=== PATIENT | female | born 1945 | race Caucasian/White ===

== ENCOUNTER 2018-05-14 07:08 | Day surgery (SDC) | payer OTHER ==
[2018-05-14] MEDS ORDERED: NS 1,000 ML IV ONE (07:11)
[2018-05-14] MEDS ORDERED: diphenhydrAMINE 25 MG CAP PO ONE ×2 (07:11→07:42)
[2018-05-14] MEDS ORDERED: DIAZEPAM 5 MG TAB PO ONE (07:11)
[2018-05-14] MEDS ORDERED: FAMOTIDINE 20 MG TAB PO ONE (07:11)
[2018-05-14] MEDS ORDERED: ASPIRIN EC 325 MG TAB PO ONE ×2 (07:11→07:43)
[2018-05-14] MEDS ORDERED: FAMOTIDINE 20 MG TAB ONE (07:42)
[2018-05-14] MEDS ORDERED: DIAZEPAM 5 MG TAB ONE (07:45)
[2018-05-14 07:52] LABS: PLATELET COUNT 216 10^3/uL (150-400)
[2018-05-14 08:02] LABS: INR 0.91 (0.83-1.16); PROTIME(PATIENT) 12.5 SEC (12.0-15.0)
--- NOTE | 2018-05-14 08:19 | PDHPUP ---
History & Physical Update H&P update statement: This history and physical update is based on an assessment of the patient which was completed after admission or registration (within 24 hours), but prior to the surgery/procedure. H&P update: H&P reviewed & patient examined, no change in patient's condition since H&P completed
--- NOTE | 2018-05-14 08:19 | PDPROPOC ---
Sedation Plan of Care Sedation Plan of Care: vital signs stable, mental status noted, patient educated of risks, benefits, alternatives, patient can tolerate sedation ASA Classification: ASA 2 Planned drugs: fentanyl, midazolam Mallampati Score: Class 1 Mallampati Reference Image:
[2018-05-14] MEDS ORDERED: HEPARIN 10,000 UNIT/10 ML MDV (1,000 UNIT/ML) ONE (09:40)
[2018-05-14] MEDS ORDERED: VERAPAMIL 5 MG/2 ML VIAL ONE (09:40)
[2018-05-14] MEDS ORDERED: MIDAZOLAM 2 MG/2 ML VIAL ONE ×2 (09:40→10:06)
[2018-05-14] MEDS ORDERED: fentaNYL 100 MCG/2 ML INJ ONE (09:40)
[2018-05-14] MEDS ORDERED: LIDOCAINE 1% 300 MG/30 ML SDV ONE (09:40)
[2018-05-14] MEDS ORDERED: IOPAMIDOL (ISOVUE-370) 150 ML BTL IV ONE (09:41)
--- NOTE | 2018-05-14 10:25 | PDDXCAT ---
Diagnostic Cath Note - . Date: 05/14/18 Academic Associate: Jamarcus Indication: Class I/II angina, intolerance to med therapy or failure to respond High-risk criteria on non-invasive testing: stress-induced moderate-size multiple perfusion defects - Procedure Access: right wrist Procedure: left heart catheterization, coronary angiography, left ventriculogram - Materials Left Heart Cath size: 5F Left Heart Cath materials: pigtail, other ([place]) - Findings-Left Heart Catheterization LM: Unobstructed LAD: Unobstructed LCX: Dominant: Unobstructed RCA: Unobstructed EDP: 15 mm of mercury LVEF: 65 Wall motion: Normal Complications: None Estimated blood loss: <50ml Closure method: TR Band Assessment: Angiographically normal coronary arteries. Normal left ventricular systolic function without regional wall motion abnormalities. Normal filling pressures. Plan: Continued medical therapy and clinical follow-up
--- NOTE | 2018-05-15 05:56 | CPEKG ---
Test Reason : OPEN Blood Pressure : / mmHG Vent. Rate : 079 BPM Atrial Rate : 078 BPM P-R Int : 233 ms QRS Dur : 119 ms QT Int : 413 ms P-R-T Axes : 065 -61 060 degrees QTc Int : 474 ms Sinus rhythm Ventricular premature complex Prolonged ID interval Incomplete left bundle branch block Probable left ventricular hypertrophy Confirmed by Collin Rios ([id number]) on 05/15/2018 5:55:39 AM Referred By: Confirmed By:Collin Rios
== END 2018-05-14 12:56 | disposition still patient (30) ==
LOC: FCATH 07:08
PROVIDERS: ATTEND Internal Medicine Interventional Cardiology
PROC: B2151ZZ Fluoroscopy of Left Heart using Low Osmolar Contrast (ICD-10-PCS; principal; 2018-05-14)
PROC: 4A023N7 Measurement of Cardiac Sampling and Pressure, Left Heart, Percutaneous Approach (ICD-10-PCS; principal; 2018-05-14)
PROC: B2111ZZ Fluoroscopy of Multiple Coronary Arteries using Low Osmolar Contrast (ICD-10-PCS; principal; 2018-05-14)
DX: I25.10 Atherosclerotic heart disease of native coronary artery without angina pectoris (principal); R94.39 Abnormal result of other cardiovascular function study; E78.5 Hyperlipidemia, unspecified; I25.2 Old myocardial infarction; Z79.82 Long term (current) use of aspirin; Z82.49 Family history of ischemic heart disease and other diseases of the circulatory system; Z82.3 Family history of stroke
CPT/HCPCS: 93005; 93458; C1769; J1200; J1644; J2250; J3010; Q9967